=== PATIENT | female | born 1970 | race Asian ===

== ENCOUNTER 2016-10-16 19:34 | Emergency (ER) | payer BC ==
[~2016-10-16] VITALS: Ht 160 cm; Wt 76.5 kg
[2016-10-16 19:36] VITALS: Ht 160 cm; Wt 76.5 kg
[2016-10-16] MEDS ORDERED: METOCLOPRAMIDE 10 MG INJ IV ONE (20:00)
[2016-10-16] MEDS ORDERED: ACETAMINOPHEN 325 MG TAB PO ONE (20:00)
[2016-10-16] MEDS ORDERED: morphine 4 MG/ML VIAL IV STA ×2 (20:00→21:46)
[2016-10-16] MEDS ORDERED: SOD CHLORIDE 0.9% 1,000 ML IV ONE (20:00)
--- NOTE | 2016-10-16 20:07 | ERD ---
ER Documentation Chief Complaint Date/Time DATE: 10/16/16 TIME: 20:05 Chief Complaint ROBERSON AND DIZZINESS X1 WEEK. DENIES N/V HPI 46-year-old female with a history of meningitis in 2012 and chronic headaches, presents to the emergency department complaining of headache, dizziness, and nausea 1 week. Patient states the pain has been intermittent and currently rates it at a 6 out of 10 circumferential throbbing pain, worse when opening her jaw. Patient states she has experienced associated dizziness which she describes as the room spinning [id number]. She also notes nausea and numbness along the posterior portion of her head. Patient states she normally takes gabapentin Motrin and Zofran to control her headaches but has been unable to control her symptoms. Patient denies any recent illness, fever, chills, congestion, neck pain, stiffness, muscle weakness, vomiting, abdominal pain, or diarrhea. Patient denies blurred vision, photophobia, diplopia, or loss of vision. She denies any recent trauma. ROS All systems reviewed and are negative except as per history of present illness. Medications Home Meds Active Scripts Ovtzhlpnkj-Fceqjlxkmmxoh-Izrrkhsz* (Fioricet*) 50-300-40 Mg Capsule, 1 CAP PO Q4H Y for HEADACHE for 10 Days, CAP Prov:SHIELA PENDLETON PA-C 10/16/16 Hydrocodone/Acetaminophen ([place] 5-325 Tablet) 1 Each Tablet, 1 EACH PO Q6 for 7 Days, #10 TAB Prov:SHIELA PENDLETON PA-C 10/16/16 Allergies Allergies: Coded Allergies: Iodine (Verified Allergy, Intermediate, 07/11/11) SOB AND ITCHING Uncoded Allergies: PO/IV CONTRAST (Allergy, Intermediate, SOB, ITCHING, 07/12/11) PMhx/Soc History of Surgery: No Anesthesia Reaction: No Hx Neurological Disorder: No Hx Respiratory Disorders: No Hx Cardiac Disorders: No Hx Psychiatric Problems: No Hx Miscellaneous Medical Probl: Yes Hx Alcohol Use: No Hx Substance Use: No Hx Tobacco Use: No Physical Exam Vitals Vital Signs Date Time Temp Pulse Resp B/P Pulse Ox O2 Delivery O2 Flow Rate FiO2 10/16/16 23:11 67 20 117/70 98 Room Air 10/16/16 19:36 97.8 79 20 119/69 99 Physical Exam Const: Well-developed, well-nourished, no acute distress, ambulates to treatment area with normal gait Head: Atraumatic, no facial asymmetry, sensation to light touch intact Eyes: EOMs intact, PERRLA, no ptosis or nystagmus, normal Conjunctiva ENT: Normal External Ears, Nose and Mouth. Temporomandibular joint moves smoothly without clicks or popping. Neck: Full range of motion..~ No meningismus. Resp: Clear to auscultation bilaterally Cardio: Regular rate and rhythm, no murmurs Abd: Soft, non tender, non distended. Normal bowel sounds Skin: No petechiae or rashes Back: No midline or flank tenderness Ext: No cyanosis, or edema Neur: Awake and alert, alert and oriented 3, cranial nerves II through XII intact, no focal neurologic deficits, normal finger to nose test, no pronator drift, gait is normal Psych: Normal Mood and Affect Result Diagram: 10/16/16202910/16/16 2030 Results 24 hrs Laboratory Tests Test 10/16/16 20:30 White Blood Count 7.410^3/ul Red Blood Count 3.6010^6/ul Hemoglobin 11.9g/dl Hematocrit 34.6% Mean Corpuscular Volume 96.1fl Mean Corpuscular Hemoglobin 33.1pg Mean Corpuscular Hemoglobin Concent 34.4g/dl Red Cell Distribution Width 12.6% Platelet Count 83969^3/UL Mean Platelet Volume 10.0fl Neutrophils % 53.4% Lymphocytes % 31.5% Monocytes % 10.3% Eosinophils % 3.9% Basophils % 0.4% Nucleated Red Blood Cells % 0.0/100WBC Neutrophils # 3.910^3/ul Lymphocytes # 2.310^3/ul Monocytes # 0.810^3/ul Eosinophils # 0.310^3/ul Basophils # 0.010^3/ul Nucleated Red Blood Cells # 0.010^3/ul Sodium Level 139mmol/L Potassium Level 4.1mmol/L Chloride Level 102mmol/L Carbon Dioxide Level 26mmol/L Anion Gap 15 Blood Urea Nitrogen 8mg/dl Creatinine 0.65mg/dl Glucose Level 95mg/dl Calcium Level 9.2mg/dl Total Bilirubin 0.1mg/dl Direct Bilirubin 0.00mg/dl Indirect Bilirubin 0.1mg/dl Aspartate Amino Transf (AST/SGOT) 23IU/L Alanine Aminotransferase (ALT/SGPT) 35IU/L Alkaline Phosphatase 102IU/L Troponin I < 0.012ng/ml Total Protein 8.0g/dl Albumin 4.2g/dl Globulin 3.80g/dl Albumin/Globulin Ratio 1.10 Current Medications Medications (Trade) Dose Ordered Sig/Olga Route PRN Reason Start Time Stop Time Status Last Admin Dose Admin Sodium Chloride (NS) 1,000 ml @ 1,000 mls/hr Q1H ONCE IV 10/16/16 20:00 10/16/16 20:59 DC 10/16/16 20:42 Metoclopramide HCl (Reglan) 10 mg ONCE ONCE IV 10/16/16 20:00 10/16/16 20:04 DC 10/16/16 20:42 Morphine Sulfate (morphine) 4 mg ONCE STAT IV 10/16/16 20:00 10/16/16 20:04 DC 10/16/16 20:43 Acetaminophen (Tylenol Tab) 650 mg ONCE ONCE PO 10/16/16 20:00 10/16/16 20:04 DC 10/16/16 20:42 Morphine Sulfate (morphine) 4 mg ONCE STAT IV 10/16/16 21:46 10/16/16 21:47 DC 10/16/16 22:06 Ketorolac Tromethamine (Toradol) 30 mg ONCE STAT IV 10/16/16 21:46 10/16/16 21:47 DC 10/16/16 22:06 Ondansetron HCl (Zofran Inj) 4 mg ONCE STAT IV 10/16/16 21:58 10/16/16 21:59 DC 10/16/16 22:04 Procedures/MDM PROCEDURE: CT Brain without. CLINICAL INDICATION: Dizziness, numbness, pain. TECHNIQUE: A CT of the brain was performed on multidetector high-resolution CT scanner utilizing axial sections from the skull base through the vertex without contrast. The scan was reviewed in soft tissue brain and high frequency resolution bone algorithm windows. Images were reviewed on a high- resolution PACS workstation. One or more the following does reduction techniques were utilized: Automated exposure control, adjustment of the mA/ or kV according to patient's size, or use of iterative reconstruction technique. The exam CTDI = 44.19 mGy and the DLP = 720.23 mGy-cm. COMPARISON: None available. FINDINGS: The ventricles and sulci are age-appropriate. There is no intracranial hemorrhage, mass effect or midline shift. No abnormal intra-axial or extra- axial fluid collections are seen. Small hypoattenuated foci are noted in bilateral lentiform nuclei which likely represent dilated perivascular spaces versus old lacunar infarcts. The oliveira/white matter differentiation is preserved. No acute skull abnormality is noted. The visualized paranasal sinuses are essentially clear. IMPRESSION: 1. No acute intracranial hemorrhage, transcortical infarction or mass effect. 2. Dilated perivascular spaces versus old lacunar infarcts in bilateral lentiform nuclei. RPTAT: HFN .Carlo Garcia MD, MD Date Time Electronically viewed and signed by .Carlo Garcia MD, on 10/16/2016 20: 33 .N/ EKG: Rate/Rhythm: Normal Sinus Rhythm QRS, ST, T-waves: No changes consistent w/ acute ischemia Impression: No evidence of ischemia or arrhythmia 46-year-old female with a history of chronic headaches presents emergency department complaining of worsening headache pain, posterior occipital numbness , jaw pain, and dizziness. Due to the patient complaining of jaw pain I ordered an EKG which demonstrated normal sinus rhythm. Troponin negative. At this time low suspicion for acute coronary syndrome or dysrhythmia. CBC showed no evidence of systemic infection or severe anemia, however her hemoglobin was slightly decreased. When discussing this with the patient, she stated that for the past month she has had abnormal vaginal bleeding and is planning to see her [employer] specialist. CMP showed no evidence of electrolyte abnormalities, severe acidosis, alkalosis , renal failure, or liver disease. Patient received a bolus of fluids as well as pain medication while in the emergency department and reports improvement of symptoms. Brain CT negative for any acute hemorrhage, midline shift, or mass. There is evidence of dilated perivascular spaces versus old lacunar infarcts, although no acute processes. Patient's vertigo likely peripheral, and she does not exhibit symptoms of the diplopia, trouble with speech or swallowing, focal weakness, ataxia, trouble with ambulation or history of falls. Patient to follow-up with ENT specialist if dizziness continues. The patient's headache is unlikely related to serious etiology. The patient does not exhibit any clinical signs or symptoms, and has no risk factors to suggest headache etiology such as subarachnoid hemorrhage, acute vertebral or carotid dissection, intracranial mass, epidural, subdural hematoma, dural venous sinus thrombosis, giant cell arteritis, or pseudotumor cerebri. Clinical presentation consistent with acute on chronic headache, dizziness, and jaw pain. Patient instructed to follow-up with neurologist for proper management of increased headache pain, dizziness. Based on patient's history of present illness and physical examination the decision was made to discharge. The patient was re-evaluated after ED treatment and stabilizing measures, and symptoms have improved. There is no evidence of life threatening injuries or illnesses at this time. On re-examination, patient resting in no distress, stable vital signs, reports feeling better and safe for discharge with outpatient follow up with PMD in 1-2 days. Patient given return precautions. Departure Diagnosis: Primary Impression: Headache Headache type: unspecified Headache chronicity pattern: chronic headache Intractability: not intractable Qualified Code: R51 - Chronic nonintractable headache, unspecified headache type Additional Impressions: Jaw pain Dizziness SHIELA PENDLETON PA-C October 16, 2016 20:07 SHIELA PENDLETON PA-C October 16, 2016 20:07
--- NOTE | 2016-10-16 20:33 | RADRPT ---
PROCEDURE: CT Brain without. CLINICAL INDICATION: Dizziness, numbness, pain. TECHNIQUE: A CT of the brain was performed on multidetector high-resolution CT scanner utilizing a xial sections from the skull base through the vertex without contrast. The scan was reviewed in sof t tissue brain and high frequency resolution bone algorithm windows. Images were reviewed on a high -resolution PACS workstation. One or more the following does reduction techniques were utilized: Aut omated exposure control, adjustment of the mA/ or kV according to patient's size, or use of iterativ e reconstruction technique. The exam CTDI = 44.19 mGy and the DLP = 720.23 mGy-cm. COMPARISON: None available. FINDINGS: The ventricles and sulci are age-appropriate. There is no intracranial hemorrhage, mass effect or mi dline shift. No abnormal intra-axial or extra-axial fluid collections are seen. Small hypoattenuate d foci are noted in bilateral lentiform nuclei which likely represent dilated perivascular spaces ve rsus old lacunar infarcts. The oliveira/white matter differentiation is preserved. No acute skull abnorm ality is noted. The visualized paranasal sinuses are essentially clear. IMPRESSION: 1. No acute intracranial hemorrhage, transcortical infarction or mass effect. 2. Dilated perivascular spaces versus old lacunar infarcts in bilateral lentiform nuclei. RPTAT: HFN .Carlo Garcia MD, MD Date Time Electronically viewed and signed by .Carlo Garcia MD, MD on 10/16/2016 20:33 .N/
[2016-10-16 20:57] LABS: ADD SCAN DIFF NO
[2016-10-16 21:00] LABS: BASOPHILS % 0.4 % (0.0-2.0); EOSINOPHILS # 0.3 10^3/ul (0.0-0.5); EOSINOPHILS % 3.9 % (0.0-7.0); HEMATOCRIT 34.6 % (37.0-47.0); HEMOGLOBIN 11.9 g/dl (12.0-16.0); LYMPHOCYTES # 2.3 10^3/ul (0.8-2.9); LYMPHOCYTES % 31.5 % (15.0-51.0); MEAN CORPUSCULAR HEMOGLOBIN 33.1 pg (29.0-33.0); MEAN CORPUSCULAR HGB CONC 34.4 g/dl (32.0-37.0); MEAN CORPUSCULAR VOLUME 96.1 fl (82.0-101.0); MONOCYTE # 0.8 10^3/ul (0.3-0.9); MONOCYTES % 10.3 % (0.0-11.0); NEUTROPHIL # 3.9 10^3/ul (1.6-7.5); NEUTROPHILS % 53.4 % (39.0-77.0); PLATELET COUNT 248 10^3/UL (140-415); RED CELL DISTRIBUTION WIDTH 12.6 % (11.5-14.5); WHITE BLOOD COUNT 7.4 10^3/ul (4.8-10.8)
[2016-10-16 21:18] LABS: ALBUMIN 4.2 g/dl (3.3-4.9)
[2016-10-16 21:19] LABS: POTASSIUM 4.1 mmol/L (3.5-5.1)
[2016-10-16 21:21] LABS: ALBUMIN/GLOBULIN RATIO 1.1; BILIRUBIN,INDIRECT 0.1 mg/dl (0-1.1); BILIRUBIN,TOTAL 0.1 mg/dl (0.2-1.3); CREATININE 0.65 mg/dl (0.44-1.00)
[2016-10-16 21:22] LABS: CALCIUM 9.2 mg/dl (8.4-10.2)
[2016-10-16] MEDS ORDERED: KETOROLAC 30 MG INJ IV STA (21:46)
[2016-10-16] MEDS ORDERED: ONDANSETRON 4 MG INJ IV STA (21:58)
[2016-10-16] MEDS ORDERED: HYDR-906 PO (22:31)
[2016-10-16] MEDS ORDERED: BUTA1CAP38 PO (22:31)
[2016-10-16 23:11] VITALS: BP 117/70; PULSE 67; RESP 20
== END 2016-10-16 23:12 | disposition home or self-care (01) ==
LOC: FTE 19:34
DX: R51 Headache (principal); R68.84 Jaw pain; R42 Dizziness and giddiness; R11.0 Nausea
CPT/HCPCS: 70450; 80053; 84484; 85025; 93005; 96374; 96375; 96376; 99285; J1885; J2270; J2405; J2765; J7030

== ENCOUNTER → 2016-10-30 | Outpatient (CLI) | payer BC ==
[~2016-10-30] MED LIST: BUTA1CAP38 PO; HYDR-906 PO
[2016-10-30 11:23] LABS: ADD SCAN DIFF NO
[2016-10-30 11:36] LABS: BASOPHILS % 0.5 % (0.0-2.0); EOSINOPHILS # 0.3 10^3/ul (0.0-0.5); EOSINOPHILS % 4.2 % (0.0-7.0); HEMATOCRIT 36.6 % (37.0-47.0); HEMOGLOBIN 12.2 g/dl (12.0-16.0); LYMPHOCYTES # 2.3 10^3/ul (0.8-2.9); LYMPHOCYTES % 37.1 % (15.0-51.0); MEAN CORPUSCULAR HEMOGLOBIN 31.7 pg (29.0-33.0); MEAN CORPUSCULAR HGB CONC 33.3 g/dl (32.0-37.0); MEAN CORPUSCULAR VOLUME 95.1 fl (82.0-101.0); MONOCYTE # 0.6 10^3/ul (0.3-0.9); MONOCYTES % 9.5 % (0.0-11.0); NEUTROPHILS % 48.5 % (39.0-77.0); PLATELET COUNT 256 10^3/UL (140-415); RED BLOOD COUNT 3.85 10^6/ul (4.20-5.40); RED CELL DISTRIBUTION WIDTH 12.3 % (11.5-14.5); WHITE BLOOD COUNT 6.2 10^3/ul (4.8-10.8)
[2016-10-30 12:05] LABS: ALBUMIN 4.7 g/dl (3.3-4.9); ALBUMIN/GLOBULIN RATIO 1.42; BILIRUBIN,INDIRECT 0.2 mg/dl (0-1.1); BILIRUBIN,TOTAL 0.2 mg/dl (0.2-1.3); CALCIUM 8.9 mg/dl (8.4-10.2); CHOL/HDL RATIO 4.1 RATIO; CREATININE 0.61 mg/dl (0.44-1.00); POTASSIUM 4.7 mmol/L (3.5-5.1)
[2016-10-30 12:34] LABS: THYROID STIMULATING HORMONE 1.69 MIU/L (0.465-4.680)
[2016-10-31 13:46] LABS: ANA SCREEN NEGATIVE (NEGATIVE)
== END | disposition home or self-care (01) ==
LOC: LAB 11:11
PROVIDERS: ATTEND Internal Medicine
DX: R51 Headache (principal); E78.5 Hyperlipidemia, unspecified; E03.9 Hypothyroidism, unspecified
CPT/HCPCS: 80053; 80061; 83036; 84436; 84443; 85025; 85651; 86038

== ENCOUNTER → 2017-07-05 | Outpatient (CLI) | END | disposition home or self-care (01) ==

== ENCOUNTER 2017-08-05 18:01 | Emergency (ER) | END 2017-08-05 21:48 | disposition home or self-care (01) ==

== ENCOUNTER 2018-02-02 09:55 | Emergency (ER) | END 2018-02-02 12:40 | disposition home or self-care (01) ==

== ENCOUNTER → 2018-02-05 | Outpatient (CLI) | END | disposition home or self-care (01) ==

== ENCOUNTER 2018-02-18 17:34 | Inpatient (IN) | END 2018-02-22 15:29 | disposition home or self-care (01) | DRG 103 ==

== ENCOUNTER → 2018-08-06 | Outpatient (CLI) | payer BC ==
[~2018-08-06] MED LIST changes: +FIORICET PO; -HYDR-906 PO
== END | disposition home or self-care (01) ==
LOC: LAB 07:49
PROVIDERS: ATTEND Internal Medicine
DX: E03.9 Hypothyroidism, unspecified (principal); E55.9 Vitamin D deficiency, unspecified; E78.5 Hyperlipidemia, unspecified
CPT/HCPCS: 80053; 80061; 82306; 84436; 84443; 85025; 85651

== ENCOUNTER → 2018-12-23 | Outpatient (CLI) | payer BC | END | disposition home or self-care (01) | LOC: LAB 16:01 | PROVIDERS: ATTEND Internal Medicine | DX: E78.5 Hyperlipidemia, unspecified (principal) | CPT/HCPCS: 80053; 80061; 84436; 84443; 85025; 85651 ==